=== PATIENT | female | born 1985 | race Caucasian/White ===

== ENCOUNTER 2018-08-08 10:21 | Emergency (ER) | payer OTHER ==
--- NOTE | 2018-08-08 11:07 | EDPHY ---
HPI/HX/ROS/PE/MDM Narrative: CLINICAL IMPRESSION: Concussion, post concussive syndrome ASSESSMENT/PLAN: 33-year-old female presents to the emergency department 4 days after a closed head injury for evaluation of intermittent mild headaches. Patient patient was helmeted when she fell at a nearly stopped position skiing 4 days ago striking the right side of her head. No associated loss of consciousness, altered mental status, amnesia to the event, vomiting, dizziness or vertigo. Since that time she has had intermittent headaches. She works as a analytical research chemist. She takes Tylenol or ibuprofen which have been improving her symptoms. She has a nonfocal neurological exam today. No clinical indication of basilar skull fracture or severe concussion. I do not feel the patient needs an emergent CT scan. We had a long discussion about post concussive in 2nd impact syndrome. I encouraged her to avoid contact sports and other triggers. I emphasized the need for primary care follow-up in order to clear her for return to these activities. Warning signs return to emergency department sooner were outlined and discharge. Patient declined Headache analgesia in the ED. DIFFERENTIAL DX: Differential diagnosis for headache includes but not limited to subarachnoid hemorrhage, migraine headache, migraine varient headache, tension headache and infectious causes such as meningitis, pharyngitis and sinusitis. CHIEF COMPLAINT: Headache after closed head injury 4 days ago HPI: 33-year-old female presents to the emergency department with complaints of intermittent mild headaches for the last 4 days. Patient reports she was skiing 4 days ago, helmeted, was coming to a stop at a very low speed, fell down and struck the right side for head. She had no loss of consciousness or amnesia to the event. She was able to get herself up and ski down the mountain. She had a"bad headache that night"and since that time has had intermittent headaches ranging from 3-4 out of 10 on a pain scale. No associated dizziness, vertigo, nausea, vomiting, seizures, vision change or hearing change, or neck pain. No upper extremity weakness or numbness. No history of chronic headaches or migraines. She is not anticoagulated. She works as a analytical research chemist. She has not seen a primary care doctor. She went to urgent care today and was sent to the emergency room. PAST MEDICAL HISTORY: Depression, anxiety, insomnia Pertinent Past Surgical History: None reported Family History: No family history of migraine Social History: Lives in [place], works as a analytical research chemist, nonsmoker ROS: A full 10 point review of systems was negative except for those mentioned in HPI. PHYSICAL EXAM: General Appearance: Alert, oriented, appropriate, cooperative, NAD, well hydrated, non-toxic appearing, VSS, no hypoxia. HEENT: TMs are clear bilaterally no perforation or FB, no injection, no evidence of serous or mucopurulent otitis. No Armijo sign or hemotympanum Oropharynx clear is no erythema or exudates, no tonsillar hypertrophy or asymmetry. Dentition without abnormality. Eyes: PERRLA, no acute vision change, nystagmus, swelling, discharge, pain or photosensitivity. Conjunctiva pink, no pallor or injection Neck: Supple, nontender, no lymphadenopathy, no midline pain, FROM, no meningismus. Respiratory: There are no retractions, lungs are clear to auscultation. Cardiac: Regular rate and rhythm, no murmurs or gallops. Gastrointestinal: Abdomen is soft, nontender, bowel sounds normal, no masses/ hernia, no rigidity, guarding or focal peritoneal findings. Skin: Warm, dry, no rashes, no nodules on palpation. Neurologic: Alert, oriented, cranial nerves 2-12 grossly intact, normal gait, no limb ataxia, DTRs 2+ patellar tendon. No focal neurological deficit. MEDICAL DECISION MAKING: Patient was seen independently. Secondary supervising physician at time of evaluation was Dr. Pickard. Diagnosis: Post concussive syndrome, mild concussion . New, requires workup Summary: See Assessment and Plan for summary of ED visit Patient Progress: Stable. (Hua Fitzpatrick) MDM: I did not see this patient while she was in the emergency department. However her care was discussed with the PA while the patient was in the department. I agree with treatment plan and med (Santiago Pickard) General Time Seen by Provider: 08/08/18 10:43 Initial Vital Signs: Initial Vital Signs Temperature (C) 36.4 C 08/08/18 10:23 Heart Rate 79 08/08/18 10:23 Respiratory Rate 18 08/08/18 10:23 Blood Pressure 142/97 H 08/08/18 10:23 O2 Sat (%) 98 08/08/18 10:23 O2 Delivery Mode Room Air Allergies/Adverse Reactions: No Known Allergies Allergy (Unverified 08/08/18 10:28) Home Medications: Medication Instructions Recorded Cymbalta 08/08/18 Gabapentin 08/08/18 Modafinil 08/08/18 Wellbutrin Xl 08/08/18 traZODone 08/08/18 Departure - Departure Disposition: Home, Routine, Self-Care Clinical Impression: Concussion Qualifiers: Encounter type: initial encounter Loss of consciousness presence/duration: without LOC Qualified Code(s): S06.0X0A - Concussion without loss of consciousness, initial encounter Condition: Good Instructions: Concussion (ED), Post Concussion Syndrome (ED) Additional Instructions: DISCHARGE INSTRUCTIONS FROM YOUR DOCTOR Thank you for visiting our emergency department today. Please keep in mind that discharge from the emergency department does not mean that there is nothing wrong - it simply means that we have not identified an emergency condition that requires further evaluation or treatment in the hospital. You should always plan to follow up with primary care for re-evaluation of your condition in the next 2-3 days. If you have been referred to a specialist, please call as soon as possible (today or tomorrow) to schedule your follow up appointment at the appropriate time. Please make a follow-up appointment with her primary care doctor this week to recheck. Please try to avoid TV, video games, computers, contact sports, or anything that exacerbates her headache until you are seen and cleared by her primary care doctor. No skiing until cleared by primary care. We do not feel you require an emergent CT scan today. It is okay to use Tylenol or ibuprofen for headaches. Please return to emergency department immediately for severe headache, altered mental status, seizure activity, vomiting, severe dizziness or vertigo, or any other concerns. People present with illnesses and injuries in different ways, and it is always possible that we have missed something. You may always return for re-evaluation if symptoms worsen or if they are not improving or if you develop new/different symptoms. Again, thank you for choosing our emergency department. We hope that you feel better. Referrals: NONE *PRIMARY CARE P,. [Primary Care Provider] - As per Instructions Yolande Mancia MD [[facility] Primary Care Provider] - As per Instructions
[2018-08-08 11:22] VITALS: BP 133/87
== END 2018-08-08 11:22 | disposition home or self-care (01) ==
DX: S06.0X0A Concussion without loss of consciousness, initial encounter (principal); V00.321A Fall from snow-skis, initial encounter; Y93.23 Activity, snow (alpine) (downhill) skiing, snowboarding, sledding, tobogganing and snow tubing; Y92.9 Unspecified place or not applicable; Y99.9 Unspecified external cause status